=== PATIENT | male | born 1975 | race Caucasian/White ===

== ENCOUNTER 2020-06-18 17:40 | Emergency (ER) | payer OTHER, SELFPAY ==
[2020-06-18] MEDS ORDERED: Lidocaine 1% PF 5 ML VIAL ONE (18:00)
[2020-06-18] MEDS ORDERED: Boostrix 0.5 ML VIAL ONE (18:00)
[2020-06-18] MEDS ORDERED: Lidocaine 2% 6 ML SYR ONE (18:08)
[2020-06-18] MEDS ORDERED: Amoxicillin/Potassium Clav 875 MG TAB ONE (19:27)
== END 2020-06-18 19:35 | disposition home or self-care (01) ==
LOC: BURERS 17:40
DX: S01.451A Open bite of right cheek and temporomandibular area, initial encounter (principal); S01.411A Laceration without foreign body of right cheek and temporomandibular area, initial encounter; F17.210 Nicotine dependence, cigarettes, uncomplicated; Z23 Encounter for immunization; W54.0XXA Bitten by dog, initial encounter
CPT/HCPCS: 12011; 90471; 90715; 99406